=== PATIENT | male | born 1935 | race Caucasian/White ===

== ENCOUNTER 2017-01-18 12:34 | Emergency (ER) | payer OTHER, MEDICARE ==
[2017-01-18] MEDS ORDERED: TRANEXAMIC ACID 1,000 MG/10 ML VIAL TP ONE (12:45)
[2017-01-18] MEDS ORDERED: LETS SOLN TOPICAL 1 EA SYR TP ONE (12:45)
[2017-01-18 12:46] VITALS: RESP 16; TEMP 97.7
[2017-01-18] MEDS ORDERED: SILVER NITRATE APPLICATOR 1 APPL TP ONE (12:46)
[2017-01-18] MEDS ORDERED: OXYMETAZOLINE 30 ML NASAL SPRAY EACHNARE ONE (12:46)
--- NOTE | 2017-01-18 12:48 | EDPHY ---
H & P Stated Complaint: epistaxis HPI/ROS: CHIEF COMPLAINT: Epistaxis, now resolved HISTORY OF PRESENT ILLNESS: 81-year-old male in daily Xarelto arrives via ambulance complaining of epistaxis which started after he sneezed earlier today. Bleeding currently stopped. No headache. No chest pain. No dyspnea. No dizziness. No syncope no near syncope. No dizziness. PHYSICAL EXAM (Prior to examination, patient consented to physical exam, hands were washed and my usual and customary physical exam procedures followed) 1) GENERAL: Well-developed, well-nourished, alert and oriented. Appears to be in no acute distress. 2) HEAD: Normocephalic 3) HEENT: sclera anicteric, no active bleeding, visible area of friability on right side 4) LUNGS: Breathing comfortably. - Personal History Current Tetanus/Diphtheria Vaccine: Yes Current Tetanus Diphtheria and Acellular Pertussis (TDAP): Yes - Medical/Surgical History Hx Asthma: No Hx Chronic Respiratory Disease: No Hx Diabetes: No Hx Cardiac Disease: No Hx Renal Disease: No Hx Cirrhosis: No Hx Alcoholism: No Hx HIV/AIDS: No Hx Splenectomy or Spleen Trauma: No Other PMH: afib, HTN, GERN, hyperlipidemia - Social History Smoking Status: Never smoked Constitutional: Initial Vital Signs Temperature (C) 36.5 C 01/18/17 12:35 Heart Rate 70 01/18/17 12:35 Respiratory Rate 16 01/18/17 12:35 Blood Pressure 165/87 H 01/18/17 12:35 O2 Sat (%) 93 01/18/17 12:35 O2 Delivery Mode Room Air Allergies/Adverse Reactions: Sulfa (Sulfonamide Antibiotics) Allergy (Verified 01/18/17 12:40) Home Medications: Medication Instructions Recorded Aspirin 01/18/17 Lisinopril 01/18/17 Omeprazole 01/18/17 Simvastatin 01/18/17 Xarelto 01/18/17 Medical Decision Making Procedures: Procedure: Epistaxis control. Indication: nosebleed not controlled by direct pressure. Risks, benefits, alternatives discussed with patient and consent obtained. The right nares was anesthetized with LAT and TXA. The anterior epistaxis was identified. initial attempts silver nitrate cautery or unsuccessful as the patient breakthrough bleeding. Subsequently rapid rhino packing placed resulting in hemostasis. Following the procedure the patient was re- examined and the bleeding was well controlled. The patient tolerated the procedure well. The procedure was performed by myself. At discharge the patient's nose is hemostatic. - Data Points Medications Given: Discontinued Medications Oxymetazoline HCl (Afrin Nasal [place]) 2 sprays EACHNARE EDNOW ONE Stop: 01/18/17 12:47 Last Admin: 01/18/17 13:22 Dose: 2 sprays Silver Nitrate/Potassium Nitrate (Silver Nitrate Applicator) 1 each TP EDNOW ONE Stop: 01/18/17 12:47 Last Admin: 01/18/17 13:23 Dose: 1 each Tetracaine/Epinephrine/Lidocaine (Lets Soln Topical) 1 ea TP EDNOW ONE Stop: 01/18/17 12:46 Last Admin: 01/18/17 13:22 Dose: 1 ea Tranexamic Acid (Cyklokapron) 500 mg TP EDNOW ONE Stop: 01/18/17 12:46 Last Admin: 01/18/17 13:23 Dose: 500 mg Departure - Departure Disposition: Home, Routine, Self-Care Clinical Impression: Anterior epistaxis Condition: Good Instructions: Nosebleed (ED) Referrals: Gus Kee MD [Medical Doctor] - 01/21/17 (Dr. Gus Kee is an ear nose throat doctor)
[2017-01-18 14:35] VITALS: BP 133/71; PULSE 86; O2SAT 96
== END 2017-01-18 14:33 | disposition home or self-care (01) ==
LOC: EDUNIT#
PROC: 2Y41X5Z Packing of Nasal Region using Packing Material (ICD-10-PCS; principal; 2017-01-18)
DX: R04.0 Epistaxis (principal); I10 Essential (primary) hypertension; Z79.01 Long term (current) use of anticoagulants; Z79.82 Long term (current) use of aspirin

== ENCOUNTER 2018-02-28 12:38 | Emergency (ER) | payer OTHER, MEDICARE ==
--- NOTE | 2018-02-28 16:17 | EDPHY ---
General - History Smoking Status: Never smoked Time Seen by Provider: 02/28/18 15:46 Narrative: CHIEF COMPLAINT: Difficulty urinating, constipation HISTORY OF PRESENT ILLNESS: Patient complains of urinary difficulty and abdominal pain with constipation. He says he has not urinated since yesterday afternoon. He tried multiple times overnight and was unable to go. He had a Joy catheter placed prior to my evaluation and now has no complaints with this. He also felt he was constipated as he has not had a bowel movement since Saturday. Following the placement of the Joy catheter, he no longer feels this way. He has no abdominal pain or feeling of constipation. He has had no chest pain or shortness of breath. No dysuria recently. He had a Watchman procedure performed on at outside facility. He was initially kept till Saturday due to difficulty urinating. He was treated for urinary tract infection on Saturday through this morning. He urinated without problems on Saturday through . He had a bowel movement on Saturday but none since. He has had decreased intake by mouth however. At this time he has no complaints of pain. REVIEW OF SYSTEMS: Ten systems reviewed and are negative unless otherwise noted in the HPI PCP: Dr. Nicolasa Ball SPECIALISTS: Dr. Madden, Cardiology PAST MEDICAL HISTORY: Atrial fibrillation, hypertension, GERD, dyslipidemia PAST SURGICAL HISTORY: Watch min procedure, bilateral knee replacements SOCIAL HISTORY: Nonsmoker. No drug or alcohol use. Lives independently with his spouse locally FAMILY HISTORY: Noncontributory EXAMINATION General Appearance: Alert, no distress Head: normocephalic, atraumatic Eyes: Pupils equal and round, no conjunctival pallor or injection ENT, Mouth: Mucous membranes moist Neck: Normal inspection, supple, non-tender Respiratory: Lungs are clear to auscultation Cardiovascular: Regular rate and rhythm Gastrointestinal: Obese Abdomen is soft and nontender. No tympany. No rigidity. Bowel sounds are symmetric. No guarding. Rectal: Digital rectal exam reveals no stool in the rectal vault. Normal appearance of stool. No simba blood. No tenderness. Slightly enlarged prostate that is non boggy. Back: non-tender, no bony abnormalities Neurological: A&O, nonfocal, normal gait Skin: Warm and dry, no rash no petechiae or purpura Extremities: Nontender, no pedal edema Psychiatric: Mood and affect normal DIFFERENTIAL DIAGNOSES: Including but not limited to constipation, urinary retention, stool stricture, UTI, cystitis, bladder calculus MDM: 3:45 p.m. Abdominal pain and urinary retention that has resolved status post Joy placement. Initial urine dip showed red blood cells but no signs of infection. He is resting comfortably in no acute distress and feels that his symptoms are completely resolved at this time. I will discuss with Dr. Adamson 4:15 p.m. Case discussed with Dr. Adamson. She agrees that we should proceed with urinalysis given his recent UTI. She agrees that we do not knee laboratory studies or imaging at this time as his symptoms have resolved. I discussed with them. We will change his Joy bag to a leg bag and instructed him on this. Urinalysis pending. 4:45 p.m. Urinalysis is still not being run by laboratory. I have discussed with them. They said they will start running this. Me that was not run because the urine microscopy was due good order although these are separate orders. 5:10 p.m. Urinalysis unremarkable except for red blood cells. No signs of infection. Abdominal exam remains benign. He has his leg bag and he has ambulated with no pain. He would like to be discharged home. He has already contacted Urology and has an appointment on Saturday at 11:00 a.m.. We discussed return to ED precautions for any return of abdominal pain, constipation or difficulty passing urine into his back. He will also take [id number] MiraLax and/or magnesium citrate. He is comfortable this plan and discharged home stable condition. SUPERVISION: Patient was independently examined, but I discussed the case with my secondary supervising physician Dr. Adamson ([facility]) Discussion: The patient was evaluated and managed by the Physician Circuit Judge. I discussed the patient's presentation and course with the physician physician assistant and agree with the evaluation. My co-signature indicates that I have reviewed this chart and I agree with the findings and plan of care as documented. I am the secondary supervising physician. (Joan Adamson) - Objective Vital Signs: Initial Vital Signs Temperature (C) 37.0 C 02/28/18 12:43 Heart Rate 74 02/28/18 12:43 Respiratory Rate 18 02/28/18 12:43 Blood Pressure 155/90 H 02/28/18 12:43 O2 Sat (%) 98 02/28/18 12:43 O2 Delivery Mode Room Air Allergies/Adverse Reactions: Sulfa (Sulfonamide Antibiotics) Allergy (Verified 01/18/17 12:40) Home Medications: Medication Instructions Recorded Aspirin 01/18/17 Lisinopril 01/18/17 Omeprazole 01/18/17 Rivaroxaban [Xarelto 15mg (*)] 15 mg PO BID #42 tab 01/18/17 Simvastatin 01/18/17 Xarelto 01/18/17 Departure - Departure Disposition: Home, Routine, Self-Care Clinical Impression: Urinary retention, Constipation Condition: Good Instructions: Polyethylene Glycol 3350 (By mouth), Magnesium Citrate (By mouth) , Urinary Retention in Men (ED), Joy Catheter Placement and Care (ED), Fleet Enema (ED) Additional Instructions: 1. Contact Urology for outpatient follow-up for the urinary retention 2. Return here for any difficulty passing urine into her back, return of abdominal pain, fever flank pain 3. Recommend bowel regimen as discussed using MiraLax or magnesium citrate 4. Contact primary care physician for outpatient follow-up Referrals: Gayathri Ball MD [Primary Care Provider] - As per Instructions Rafal Calixto MD [Medical Doctor] - As per Instructions
[2018-02-28 17:23] VITALS: BP 147/93
== END 2018-02-28 17:24 | disposition home or self-care (01) ==
PROC: 0T9B70Z Drainage of Bladder with Drainage Device, Via Natural or Artificial Opening (ICD-10-PCS; principal; 2018-02-28)
DX: R33.9 Retention of urine, unspecified (principal); K59.00 Constipation, unspecified; I10 Essential (primary) hypertension; Z79.01 Long term (current) use of anticoagulants; Z79.82 Long term (current) use of aspirin

== ENCOUNTER 2018-02-28 21:24 | Emergency (ER) | payer OTHER, MEDICARE ==
[2018-02-28 21:30] VITALS: BP 164/88
--- NOTE | 2018-02-28 21:36 | EDPHY ---
H & P Stated Complaint: SEEN EARLIER, NOW WITH BLOOD IN CATHETHER BAG Time Seen by Provider: 02/28/18 21:35 HPI/ROS: HPI CHIEF COMPLAINT: Seen her earlier, blood in Joy catheter bag HISTORY OF PRESENT ILLNESS: 82-year-old male he was seen here earlier in emergency room with urinary retention resolved with a Joy catheter he now presents back to the emergency room because he noticed some blood in his Joy catheter bag this Joy was placed earlier this evening. He is on Xarelto for AFib. He denies any abdominal pain or fever back pain. The bag is been draining appropriately he just became concerned of the blood in his urine. I did review his previous ER visit as well his urinalysis. Urinalysis revealed blood but no infection. Most likely has blood in his Joy catheter bag from recent Joy catheter placement. Past Medical History: AFib, hypertension, hyperlipidemia Past Surgical History: Watchman Procedure. Social History: Denies drugs alcohol tobacco products. Family History: Noncontributory ROS REVIEW OF SYSTEMS: A comprehensive 10 point review of systems is otherwise negative aside from elements mentioned in the history of present illness. Exam Constitutional appears well nontoxic no acute distress triage nursing summary reviewed, vital signs reviewed, awake/alert. Eyes normal conjunctivae and sclera, EOMI, PERRLA. HENT normal inspection, atraumatic, moist mucus membranes, no epistaxis, neck supple/ no meningismus, no raccoon eyes. Respiratory clear to auscultation bilaterally, normal breath sounds, no respiratory distress, no wheezing. Cardiovascular rate normal, regular rhythm, no murmur, no edema, distal pulses normal. Gastrointestinal soft, non-tender, no rebound, no guarding, normal bowel sounds, no distension, no pulsatile mass. Genitourinary no CVA tenderness. Musculoskeletal no midline vertebral tenderness, full range of motion, no calf swelling, no tenderness of extremities, no meningismus, good pulses, neurovascularly intact. Patient has a leg bag attached to right leg there is blood tinged urine. Otherwise no clot or significant amount of blood. Skin pink, warm, & dry, no rash, skin atraumatic. Neurologic awake, alert and oriented x 3, AAOx3, moves all 4 extremities equally, motor intact, sensory intact, CN II-XII intact, normal cerebellar, normal vision, normal speech. Psychiatric normal mood/affect. Heme/Lymph/Immune no lymphadenopathy. Differential Diagnosis: Includes but is not limited to in a particular order blood in Joy bag from being on Xarelto and recent placement of a Joy catheter, bleeding from Joy catheter placement, bleeding from Joy catheter [place] irritating bladder wall, cystitis Medical Decision Making: Plan for this patient will irrigate his Joy catheter out to make sure there is no clots and then I feel comfortable allowing to be discharged home. He understands stay well-hydrated. Distally return if he has back pain abdominal pain fever vomiting worsening bleeding questions or concerns he understands. Re-evaluation: Source: Patient - Personal History Current Tetanus/Diphtheria Vaccine: Yes Current Tetanus Diphtheria and Acellular Pertussis (TDAP): Yes - Medical/Surgical History Hx Asthma: No Hx Chronic Respiratory Disease: No Hx Diabetes: No Hx Cardiac Disease: Yes Hx Renal Disease: No Hx Cirrhosis: No Hx Alcoholism: No Hx HIV/AIDS: No Hx Splenectomy or Spleen Trauma: No Other PMH: afib, HTN, GERd, hyperlipidemia, PACEMAKER. watchman surgery 03/05 a - Social History Smoking Status: Never smoked Constitutional: Initial Vital Signs Temperature (C) 36.4 C 02/28/18 21:25 Heart Rate 75 02/28/18 21:25 Respiratory Rate 16 02/28/18 21:25 Blood Pressure 164/88 H 02/28/18 21:25 O2 Sat (%) 93 02/28/18 21:25 O2 Delivery Mode Room Air Allergies/Adverse Reactions: Sulfa (Sulfonamide Antibiotics) Allergy (Verified 01/18/17 12:40) Home Medications: Medication Instructions Recorded Aspirin 01/18/17 Lisinopril 01/18/17 Omeprazole 01/18/17 Rivaroxaban [Xarelto 15mg (*)] 15 mg PO BID #42 tab 01/18/17 Simvastatin 01/18/17 Xarelto 01/18/17 Departure - Departure Disposition: Home, Routine, Self-Care Clinical Impression: Joy catheter in place Condition: Good Instructions: Hematuria (ED) Additional Instructions: 1. Stay well-hydrated drink lots of fluids. 2. Return emergency room if you have any further symptoms questions or concerns includes severe abdominal pain fever vomiting back pain worsening bleeding. Referrals: Gayathri Ball MD [Primary Care Provider] - As per Instructions
== END 2018-02-28 21:57 | disposition home or self-care (01) ==
DX: Z96.0 Presence of urogenital implants (principal); I10 Essential (primary) hypertension; Z79.82 Long term (current) use of aspirin; Z95.0 Presence of cardiac pacemaker

== ENCOUNTER 2018-06-17 18:32 | Emergency (ER) | payer OTHER, MEDICARE ==
--- NOTE | 2018-06-17 18:43 | CPEKG ---
Heart Rate: 92 RR Interval: 652 QRSD Interval: 250 QT Interval: 436 QTC Interval: 540 P [place]: 0 QRS [place]: 27 T Wave [place]: 251 EKG Severity - ABNORMAL ECG - EKG Impression: A-V DUAL-PACED COMPLEXES W/ SOME INHIBITION Electronically Signed By: Jason Mccray 17-Jun-2018 21:24:28
--- NOTE | 2018-06-17 18:46 | EDPHY ---
H & P Time Seen by Provider: 06/17/18 18:45 HPI/ROS: CHIEF COMPLAINT: Syncope HISTORY OF PRESENT ILLNESS: The patient presents the ED after an episode of syncope. The patient reportedly was at his neighbor's house drinking wine. He was observed to collapse into a chair. There is no fall or trauma. The patient slowly regained consciousness over a 1 min period. The patient denies any complaints of headache, neck pain, chest pain, numbness, weakness, respiratory symptoms or recent illness. The patient was experiencing some mild nausea earlier in the day. The patient also is been experiencing some mild back pain from a slight injury earlier today. The patient's back pain is clearly in the musculature. She denies any midline symptoms. He denies any history of a fall or significant traumatic injury. The patient does have a pacemaker secondary to atrial fibrillation. He is currently on Plavix but not anticoagulated. REVIEW OF SYSTEMS: A comprehensive 10 point review of systems is otherwise negative aside from elements mentioned in the history of present illness. Source: Patient Exam Limitations: No limitations - Medical/Surgical History Hx Asthma: No Hx Chronic Respiratory Disease: No Hx Diabetes: No Hx Cardiac Disease: Yes Hx Renal Disease: No Hx Cirrhosis: No Hx Alcoholism: No Hx HIV/AIDS: No Hx Splenectomy or Spleen Trauma: No Other PMH: afib, HTN, GERd, hyperlipidemia, PACEMAKER. watchman surgery 03/05 - Social History Smoking Status: Never smoked - Physical Exam Exam: General Appearance: Alert, no distress Eyes: Pupils equal and round no pallor or injection ENT, Mouth: Mucous membranes moist Respiratory: There are no retractions, lungs are clear to auscultation Cardiovascular: Regular rate and rhythm Gastrointestinal: Abdomen is soft and nontender, no masses, bowel sounds normal Neurological: A&O, normal motor function, normal sensory exam, normal cranial nerves Skin: Warm and dry, no rashes Musculoskeletal: Neck is supple nontender Extremities: symmetrical, full range of motion Constitutional: Initial Vital Signs Temperature (C) 36.5 C 06/17/18 18:45 Heart Rate 62 06/17/18 18:45 Respiratory Rate 16 06/17/18 18:45 Blood Pressure 108/78 06/17/18 18:45 O2 Sat (%) 95 06/17/18 18:45 O2 Delivery Mode Room Air Allergies/Adverse Reactions: Sulfa (Sulfonamide Antibiotics) Allergy (Verified 01/18/17 12:40) Home Medications: Medication Instructions Recorded Aspirin 01/18/17 Lisinopril 01/18/17 Omeprazole 01/18/17 Simvastatin 01/18/17 Metoprolol Succinate 06/17/18 Plavix 06/17/18 Medical Decision Making - Diagnostics EKG Interpretation: EKG: Complete interpretation has been separately recorded in the [employer] archive. Summary impression: Av paced rhythm, rate 92 ED Course/Re-evaluation: The patient presents the ED after an episode of syncope. The patient was placed on a correspondence school instructor. His initial EKG demonstrates normal intact pacing function. The patient is noted to be neurologically intact with stable vital signs. He has no acute complaints currently. The patient's laboratory studies are within normal limits. We did have the patient's pacemaker interrogated by the [employer] technical service representative. He reports there is no evidence of a pacemaker malfunction. The patient is noted to have occasional PVCs. He continues to be an underlying atrial fib/flutter rhythm. The patient was observed in the emergency department for 3 hr. He had multiple examinations by myself over that time. He has had no recurrent syncope. He has no acute neurologic findings. He has no complaints of chest pain or shortness of breath. At this point time, I feel that he likely experienced a vasovagal episode. The patient would like to be discharged home. He is comfortable returning to the emergency department for any recurrent syncope, chest pain, fever, worsening symptoms or other concerns. The patient will schedule a follow-up appointment with his regular stone dresser for a recheck within the week. Differential Diagnosis: Differential diagnosis considered includes vasovagal episode, arrhythmia, pacemaker malfunction, dehydration, acute coronary syndrome, metabolic abnormality - Data Points Laboratory Results: Laboratory Results 06/17/18 18:33 06/17/18 18:33 06/17/18 06/17/18 06/17/18 18:41 18:33 18:33 WBC 7.28 10^3/uL 10^3/uL (3.80-9.50) RBC 5.33 10^6/uL 10^6/uL (4.40-6.38) Hgb 17.5 g/dL g/dL (13.7-17.5) Hct 50.0 % % (40.0-51.0) MCV 93.8 fL fL (81.5-99.8) MCH 32.8 pg pg (27.9-34.1) MCHC 35.0 g/dL g/dL (32.4-36.7) RDW 12.9 % % (11.5-15.2) Plt Count 227 10^3/uL 10^3/uL (150-400) MPV 10.4 fL fL (8.7-11.7) Neut % (Auto) 66.9 % % (39.3-74.2) Lymph % (Auto) 21.6 % % (15.0-45.0) [place] % (Auto) 7.8 % % (4.5-13.0) Eos % (Auto) 2.6 % % (0.6-7.6) Baso % (Auto) 0.7 % % (0.3-1.7) Nucleat RBC Rel Count 0.0 % % (0.0-0.2) Absolute Neuts (auto) 4.87 10^3/uL 10^3/uL (1.70-6.50) Absolute Lymphs (auto) 1.57 10^3/uL 10^3/uL (1.00-3.00) Absolute Monos (auto) 0.57 10^3/uL 10^3/uL (0.30-0.80) Absolute Eos (auto) 0.19 10^3/uL 10^3/uL (0.03-0.40) Absolute Basos (auto) 0.05 10^3/uL 10^3/uL (0.02-0.10) Absolute Nucleated RBC 0.00 10^3/uL 10^3/uL (0-0.01) Immature Gran % 0.4 % % (0.0-1.1) Immature Gran # 0.03 10^3/uL 10^3/uL (0.00-0.10) Sodium 140 mEq/L mEq/L (135-145) Potassium 4.4 mEq/L mEq/L (3.3-5.0) Chloride 103 mEq/L mEq/L (97-110) Carbon Dioxide 21 mEq/l L mEq/l (22-31) Anion Gap 16 mEq/L mEq/L (8-16) BUN 31 mg/dL H mg/dL (7-23) Creatinine 1.2 mg/dL mg/dL (0.7-1.3) Estimated GFR 58 Glucose 116 mg/dL H mg/dL (70-100) Calcium 9.6 mg/dL mg/dL (8.5-10.4) POC Troponin I 0.02 ng/mL ng/mL (0.00-0.08) Point of Care Test Results: Chemistry 06/17/18 18:41 POC Troponin I 0.02 ng/mL ng/mL (0.00-0.08) Departure - Departure Disposition: Home, Routine, Self-Care Clinical Impression: Syncope, Vasovagal episode Condition: Good Instructions: Syncope (DC) Additional Instructions: 1. Please return to the ED for any recurrent passing out, chest pain, difficulty breathing or other concerns. 2. Please schedule a follow-up appointment with your regular stone dresser for a recheck within the next 1-2 weeks. 3. The workup in the emergency department today demonstrates no evidence of a pacemaker malfunction, heart attack, metabolic abnormality or other acute condition. It is likely you had symptoms secondary to mild dehydration and alcohol consumption.
[2018-06-17 18:56] LABS: PLATELET COUNT 227 10^3/uL (150-400)
[2018-06-17 22:03] VITALS: BP 126/85
== END 2018-06-17 22:15 | disposition home or self-care (01) ==
LOC: EDUNIT#
DX: R55 Syncope and collapse (principal); I48.91 Unspecified atrial fibrillation; I10 Essential (primary) hypertension; E78.5 Hyperlipidemia, unspecified; Z95.0 Presence of cardiac pacemaker
CPT/HCPCS: 84484-PO

== ENCOUNTER 2018-07-06 | Emergency (ER) | payer OTHER, MEDICARE | END 2018-07-06 13:31 | disposition home or self-care (01) | PROC: 2Y41X5Z Packing of Nasal Region using Packing Material (ICD-10-PCS; principal; 2018-07-06) ==

== ENCOUNTER → 2018-10-23 | Outpatient (CLI) | payer OTHER, MEDICARE | LOC: FCPNEURO 20:00 | PROVIDERS: ATTEND Psychiatry & Neurology Sleep Medicine | DX: G47.33 Obstructive sleep apnea (adult) (pediatric) (principal) ==